=== PATIENT | male | born 1985 | race Caucasian/White ===

== ENCOUNTER 2020-10-31 22:50 | Emergency (ER) | payer OTHER ==
[~2020-10-31] VITALS: Ht 177.8 cm; Wt 94.7 kg
--- NOTE | 2020-11-01 01:14 | REPVR ---
PROCEDURE INFORMATION: Exam: XR Left Toe(s) Exam date and time: 10/31/2020 11:44 PM Age: 35 years old Clinical indication: Pain; Toes; Left; Additional info: Left great toe injury TECHNIQUE: Imaging protocol: XR Left toes. Views: Minimum 2 views. COMPARISON: No relevant prior studies available. FINDINGS: Bones/joints: There is no fracture or dislocation of the left great toe. The joint spaces and alignment of the left great toe are maintained. No arthropathy is noted involving the left great toe. There are no bony destructive changes. Soft tissues: Unremarkable. IMPRESSION: No fracture or dislocation of the left great toe. Electronically signed by: Jett Mcdowell On 11/01/2020 01:13:45 AM
[2020-11-01 01:50] VITALS: BP 143/96
== END 2020-11-01 07:13 | disposition home or self-care (01) ==
LOC: M ED 22:50
DX: S90.212A Contusion of left great toe with damage to nail, initial encounter (principal); W22.8XXA Striking against or struck by other objects, initial encounter; Y92.009 Unspecified place in unspecified non-institutional (private) residence as the place of occurrence of the external cause; Y93.89 Activity, other specified; Y99.9 Unspecified external cause status; I10 Essential (primary) hypertension